=== PATIENT | male | born 1965 | race Hispanic/Latino ===

== ENCOUNTER 2016-12-16 09:19 | Observation (INO) | payer BC ==
--- NOTE | 2016-12-16 09:42 | ED PDOC ---
HPI: Psych/Substance Abuse Time Seen by Provider: 12/16/16 09:24 Chief Complaint (Nursing): Psychiatric Evaluation Chief Complaint (Provider): Psychiatric Evaluation History Per: Patient History/Exam Limitations: no limitations Onset/Duration Of Symptoms: Hrs Current Symptoms Are (Timing): Still Present Additional Complaint(s): 51 y/o male presents to the emergency department via ambulance after patient texted that he wanted to kill himself by drinking to with alcohol. Admits to drinking this morning and being depressed because he is going through a divorce and lost his job. Denies ingestion of any medications or pills. Past Medical History Reviewed: Historical Data, Nursing Documentation, Vital Signs - Medical History PMH: Denies: Diabetes, Hepatitis, HIV, HTN, Seizures, Sexually Transmitted Disease - Family History Family History: States: Unknown Family Hx - Home Medications Home Medications: Ambulatory Orders Medication Instructions Recorded ALPRAZolam [Xanax] 1 mg PO HS #5 tab 04/18/16 Famotidine [Pepcid] 20 mg PO BID #28 tab 04/18/16 Ondansetron [Zofran] 4 mg PO Q8H #9 tab 04/18/16 - Allergies Allergies/Adverse Reactions: Allergies Allergy/AdvReac Type Severity Reaction Status Date / Time No Known Allergies Allergy Verified 04/18/16 04:27 Review of Systems ROS Statement: Except As Marked, All Systems Reviewed And Found Negative Psych: Positive for: Depression, Suicidal ideation. Negative for: Other ( Ingestion of pills or any medications) Physical Exam - Reviewed Nursing Documentation Reviewed: Yes Vital Signs Reviewed: Yes - Physical Exam Appears: Positive for: Non-toxic, No Acute Distress Head Exam: Positive for: ATRAUMATIC, NORMAL INSPECTION, NORMOCEPHALIC Skin: Positive for: Normal Color, Warm, Dry Cardiovascular/Chest: Positive for: Regular Rate, Rhythm. Negative for: Murmur Respiratory: Positive for: Normal Breath Sounds. Negative for: Accessory Muscle Use, Wheezing, Respiratory Distress Gastrointestinal/Abdominal: Positive for: Normal Exam, Soft. Negative for: Tenderness Extremity: Positive for: Normal ROM. Negative for: Tenderness, Pedal Edema Neurologic/Psych: Positive for: Alert, Oriented (x3) - Laboratory Results Result Diagrams: 12/16/16 10:52 12/16/16 12:30 Medical Decision Making Medical Decision Making: Time: 09:32 Initial impression: Depression Initial plan: --EKG --Alcohol Serum --CMP --Drug Screen, Urine --Urine DIP --CBC w/ diff --Chest Portable --1:1 Obs for suicide precaution --Crisis evaluation as ordered for depression --Reevaluation Time: 12:30 --Alcohol Quantitative: 209 (H) Scribe Attestation: Documented by Iris Quintero, acting as a scribe for Ross Velazquez MD. Medically stable for psychiatric admission. Provider Scribe Attestation: All medical record entries made by the Scribe were at my direction and personally dictated by me. I have reviewed the chart and agree that the record accurately reflects my personal performance of the history, physical exam, medical decision making, and the department course for this patient. I have also personally directed, reviewed, and agree with the discharge instructions and disposition. ED OBSERVATION Discharge: Yes Date of observation admission: 12/16/16 Time of observation admission: 09:32 - Observation admission statement Patient is being placed in observation because:: Suicidal ideation, alcohol consumption, and depression. - Goals of Observation Goals of observation are:: Resolution of thoughts, and sobriety. - Progress Note Progress Note: 12/16/16 11:00 --Patient resting comfortably. Pending crisis evaluation. 12/16/16 12:30 --Patient resting comfortably and pending clinical sobriety for crisis evaluation. 12/16/16 14:00 --Patient resting comfortably and pending clinical sobriety for crisis evaluation. Disposition - Clinical Impression Clinical Impression: Depression - Patient ED Disposition Is Patient to be Admitted: Transfer of Care - Disposition Referrals: FAMILY PROVIDER,NO [Primary Care Provider] - Disposition: Transfer of Care Disposition Time: 15:02 Condition: FAIR Forms: [employer] (Luxembourgish) Patient Signed Over To: Jay Arauz
[2016-12-16 11:13] LABS: BASO % 0.6 % (0.0-2.0); HEMATOCRIT 44.2 % (35.0-51.0); LYMPH # 1.4 K/uL (1.0-4.3); LYMPH % 16.8 % (20.0-40.0); MEAN CELL VOLUME 96.1 fl (80.0-94.0); MEAN CORPUSCULAR HGB CONC 34.4 g/dL (33.0-37.0); MEAN PLATELET VOLUME 7.5 fl (7.2-11.7); MONO # 0.4 K/uL (0.0-0.8); MONO % 5.1 % (0.0-10.0); NEUT # 6.4 K/uL (1.8-7.0); NEUT % 77.5 % (50.0-75.0); RED CELL DISTRIBUTION WIDTH 14.1 % (11.5-14.5); WHITE BLOOD COUNT 8.3 K/uL (4.8-10.8)
[2016-12-16 13:06] LABS: ALB/GLOB RATIO 1.5 (1.0-2.1); ALCOHOL SERUM 209 mg/dl (0-10); ALKALINE PHOSPHATASE 84 U/L (38-126); ALT/SGPT 115 U/L (21-72); AST/SGOT 80 U/L (17-59); BILIRUBIN,TOTAL 1.1 mg/dl (0.2-1.3); BLOOD UREA NITROGEN 12 mg/dl (9-20); CALCIUM 8.5 mg/dL (8.4-10.2); CARBON DIOXIDE 25 mmol/L (22-30); CHLORIDE 95 mmol/L (98-107); GFR AFRICAN-AMERICAN > 60; GLUCOSE,RANDOM 100 mg/dL (75-110); POTASSIUM 3.9 MMOL/L (3.6-5.0); SODIUM 136 mmol/l (132-148); TOTAL PROTEIN 7.3 G/DL (6.3-8.2)
--- NOTE | 2016-12-16 15:27 | RAD ---
HISTORY: cough COMPARISON: No prior. FINDINGS: LUNGS: The lungs are clear. PLEURA: No significant pleural effusion identified, no pneumothorax apparent. CARDIOVASCULAR: Normal. OSSEOUS STRUCTURES: No significant abnormalities. VISUALIZED UPPER ABDOMEN: Normal. OTHER FINDINGS: None. IMPRESSION: No active pulmonary disease.
--- NOTE | 2016-12-16 15:36 | ED PDOC ---
- Laboratory Results Result Diagrams: 12/16/16 10:52 12/16/16 12:30 - ECG O2 Sat by Pulse Oximetry: 97 (RA) Pulse Ox Interpretation: Normal Medical Decision Making Medical Decision Making: Time: 1500 --Patient endorsed from Dr. Velazquez to me. --Pending psychiatric evaluation. Any further documentation will be included within ED Obs section of chart. Scribe Attestation: Documented by Iris Quintero, acting as a scribe for Jay Arauz MD. Provider Scribe Attestation: All medical record entries made by the Scribe were at my direction and personally dictated by me. I have reviewed the chart and agree that the record accurately reflects my personal performance of the history, physical exam, medical decision making, and the department course for this patient. I have also personally directed, reviewed, and agree with the discharge instructions and disposition. Disposition - Clinical Impression Clinical Impression: Depression - POA Present On Arrival: None - Disposition Disposition: Transfer of Care Disposition Time: 15:12 Condition: FAIR Patient Signed Over To: Vishal Starr ED OBSERVATION Discharge: Yes Date of observation admission: 12/16/16 Time of observation admission: 09:32 - Observation admission statement Patient is being placed in observation because:: Depression, alcohol consumption, and suicidal ideation. - Goals of Observation Goals of observation are:: resolution of symptoms and crisis evaluation. - Progress Note Progress Note: Chest x-ray FINDINGS: LUNGS: The lungs are clear. PLEURA: No significant pleural effusion identified, no pneumothorax apparent. CARDIOVASCULAR: Normal. OSSEOUS STRUCTURES: No significant abnormalities. VISUALIZED UPPER ABDOMEN: Normal. OTHER FINDINGS: None. IMPRESSION: No active pulmonary disease. Time: 15:30 --Patient pending crisis evaluation. Took over care from Dr. Velazquez. Dr. Velazquez medically cleared pt. 12/16/16 16:26 Pt. is medically stable at this time for further psychiatric evaluation. 12/16/16 23:11 Pending psych dispo. Has gotten ativan for anxiety and tylenol for mild headache that is gone currently. Not worst in his life. No nausea, vomit, weakness, neck pain, fever. Dr. Starr to fu on crisis.
--- NOTE | 2016-12-16 23:55 | ED PDOC ---
- Laboratory Results Result Diagrams: 12/16/16 10:52 12/16/16 12:30 - ECG O2 Sat by Pulse Oximetry: 97 (RA) Medical Decision Making Medical Decision Makin -Patient will be endorsed to me by Dr. Arauz. -Patient is being transferred to [facility] 0700 -Patient signed out to Dr. Quinteros, pending bed availability at [facility]. Disposition - Clinical Impression Clinical Impression: Depression - POA Present On Arrival: None - Disposition Disposition: Routine/Home Disposition Time: 01:25 Condition: FAIR
--- NOTE | 2016-12-17 00:01 | CARD ---
APPROVED REPORT EKG Measurement Heart [id number] <Conclusion> Sinus tachycardia Otherwise normal ECG
--- NOTE | 2016-12-17 07:06 | ED PDOC ---
- Laboratory Results Result Diagrams: 12/16/16 10:52 12/16/16 12:30 - ECG O2 Sat by Pulse Oximetry: 97 (RA) Medical Decision Making Medical Decision Making: endorsed from Dr Starr pending transfer for psychiatric admission 10am awake, cooperative, denies suicidal thoughts. No signs acute clinically significant alcohol withdrawal syndrome- no vomiting, no hallucinations, no diaphoresis, no tachycardia. 130p Dr Alarcon psychiatry addictions recovery specialist saw patient in ED, states can be discharged to followup as outpatient. Disposition Counseled Patient/Family Regarding: Studies Performed, Diagnosis, Need For Followup - Clinical Impression Clinical Impression: Depression, Alcohol abuse - POA Present On Arrival: None - Disposition Disposition: Routine/Home Disposition Time: 14:11 Condition: STABLE
--- NOTE | 2016-12-17 14:04 | CP.PCM.CON ---
History of Present Illness - History of Present Illness History of Present Illness: psychiatry consult ordered by dr. anderson reason: pt wants to leave [facility] and has been here a long time and was agreeable to go to psychiatry yesterday but now wants to go cc: i've been here 40 hours hpi: 51 yo male presented to ER with elevated bal (over 200) and making threats to kill himself. both pt and screener agree that pt's plan was to drink himself to . pt apparently has been from for 2 years, but they maintain involvement and have teenage daughters they raise together. pt recently was laid off from work. pt states his "knows how to manipulate me and made me agree to get treatment yesterday." pt agrees he would like treatment for his alcohol use disorder, but denies that he has any mental illness. "i am not a loony" pt denies any symptoms of depression or brandi. no psychotic symptoms. he denies previous suicide attempts. pt states he plans to go to his fathers house this weekend and then try to arrange outpatient treatment for his alcohol use disorder next week. he states he will go to an AA meeting today after he leaves the hospital. ER doctor hesitant to discharge patient without a psychiatric assessment. screeners have assessed pt yesterday and again today and did not express any reservations with discharging the patient [facility]. 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 states he has 5 properties in [place] and does not have financial worries. past psych: states he was in [facility] in past on detox unit and does not want to return there. denies other admissions. denies any suicide attempts. substance abuse: history of alcohol use disorder. pt states he was sober for 16 years until his separation from his . he will not quantify his current use, but states he drinks in binges. medical issues: gerd mse: alert, oriented x 3. mildly tremulous. pleasant, cooperative and makes good eyecontact. speech is fluid and normal volume, rate, production. mood is "anxious to get out of here" affect is bright. pt denies any suicidal or homicidal thoughts/plans or intent. denies any a/v hallucinations. fair i/j. assessment: alcohol use disorder, unspecified recommendation: pt is signing out AMA in terms of psychiatric presentation: he does not meet criteria for involuntary hospitalization based on not presenting as having a mental illness that would lead to pt posing an immediate danger to himself, others or property. pt is capable of arranging his own aftercare if he wishes to do so in terms of alcohol withdrawal, it is up to the ER attending to determine if pt is risk for medical complications of alcohol withdrawal if not in the hospital. Past Patient History - Infectious Disease Hx of Infectious Diseases: None - Past Social History Smoking Status: Unknown If Ever Smoked - CARDIAC Hx Cardiac Disorders: No Hx Hypertension: No - PULMONARY Hx Tuberculosis: No - NEUROLOGICAL HX Cerebrovascular Accident: No Hx Seizures: No - HEMATOLOGICAL/ONCOLOGICAL Hx Cancer: No Hx Human Immunodeficiency Virus (HIV): No - GENITOURINARY/GYNECOLOGICAL Hx Sexually Transmitted Disorders: No - PSYCHIATRIC Hx Depression: Yes Hx Substance Use: No Meds Allergies/Adverse Reactions: Allergies Allergy/AdvReac Type Severity Reaction Status Date / Time No Known Allergies Allergy Verified 04/18/16 04:27 Results - Vital Signs Recent Vital Signs: Last Vital Signs Temp 98.8 F 12/17/16 08:25 Pulse 95 H 12/17/16 08:25 Resp 16 12/17/16 08:25 BP 127/99 H 12/17/16 08:25 Pulse Ox 100 12/17/16 08:25 - Labs Result Diagrams: 12/16/16 10:52 12/16/16 12:30
[2016-12-17 14:12] VITALS: O2SAT 97
[2016-12-17 14:25] VITALS: BP 138/78; PULSE 81; RESP 14; TEMP 98
== END 2016-12-17 14:24 | disposition home or self-care (01) ==
LOC: H.ER 09:19 → SUPCPDRO 09:19 → H.EROBSV 23:11
PROVIDERS: ADMIT Emergency Medicine; ATTEND Emergency Medicine
DX: F32.9 Major depressive disorder, single episode, unspecified (principal); F41.9 Anxiety disorder, unspecified; F10.10 Alcohol abuse, uncomplicated; R45.851 Suicidal ideations; Z00.8 Encounter for other general examination
CPT/HCPCS: 71010; 80053; 85025; 93005; 99285; G0378; G0480